=== PATIENT | female | born 1995 | race Caucasian/White ===

== ENCOUNTER 2024-02-14 08:00 | Outpatient (RCR) | payer MEDICAID, SELFPAY ==
--- NOTE | 2024-02-14 09:05 | BH.SGPN.GN ---
Behaviors/Verbalizations/Mental Status: [] Eye contact is good. Motor activity is appropriate. Appearance is casual. Speech is Appropriate. Mood is anxious. Affect is congruent. Thoughts are linear and logical. No evidence of psychosis. Reviewed daily check in sheet and no reports of suicidal ideations or intent. Client Response/Progress/Benefit: [] Pt participated when prompted. Attentive. Daily symptom tracker notes 3/5 for irritability and 2/5 for depression/anxiety. This was pt?s first group in [facility]. She declined to shared much about herself or what led her to enter [facility]. She discussed some of her interests and answered group question regarding identifying mental health wins in the past day. No progress noted as this was pt?s first day in IOP. Group provided feedback and advice for her first day in [facility] which was beneficial. Will continue in IOP to prevent decompensation, increase healthy coping, and improve functioning. Narrative Note: []
--- NOTE | 2024-02-14 10:20 | BH.SGPN.GN ---
Behaviors/Verbalizations/Mental Status: []Pt alert and oriented, causally dressed and groomed. Eye contact fair. Motor activity appropriate. Speech within normal limits. Affect constricted, mood anxious and depressed. Thoughts linear, logical, no signs of hallucinations or delusions. Client Response/Progress/Benefit: [] Pt responded well to session, contributing to discussion, and engaged during the activity. Group identified the benefits of change which included: increased confidence, improving mental health, and making progress. Worked with the group to identify barriers to change, which included: uncomfortable emotions such as anxiety and fear, lack of energy, worried about what others will think, and fear of the unknown. Pt participated along with group in activity where they identified and discussed the emotions related to change. Pt connected with peers that one can have many conflicting emotions when faced with change. Benefited from increased awareness and understanding of emotions, benefits, and barriers related to change. Will continue IOP tx to improve healthy coping, challenge anxious thoughts/decrease avoidance, and prevent decompensation.
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
--- NOTE | 2024-02-14 10:49 | BH.COMM ---
Communication Note Communication with Client Communication Note: Met with pt to complete initial paperwork and administer the CSSR-S screening and risk assessment. Pt is low risk as pt has history of suicidal ideations with thoughts of methods and she had one self-aborted attempt when she was younger, but pt denies any thoughts of or SI within the past month. Pt denies any suicide attempts in her lifetime. No report of self-harm. Pt has no access to weapons. Pt a Discussed case with Dr. Melendez and pt will be admitted to [facility] tx with a diagnosis of Bipolar I, most recent episode depressed F 31.81
--- NOTE | 2024-02-14 11:15 | BH.SGPN.GN ---
Behaviors/Verbalizations/Mental Status: [] Client alert and oriented, casually dressed and groomed. Eye contact good. Motor activity appropriate. Speech within normal limits. Affect congruent, mood anxious. Thoughts linear, logical, no signs of hallucinations or delusions. Client Response/Progress/Benefit: [] Client responded well to session, attentive throughout. Did well to actively listen and contributed when prompted as group worked to process activity. Pt worked with group to relate the strategies used to overcome barriers in the activity to managing change in own life. Client identified a change they would like to make is improving self-confidence. Client identified currently being in preparation stage for this particular change. Client said reaching out to new people and maintaining her current boundaries can help get her to next stage. Appeared to benefit from identifying a change they want and how to progress. Client will continue IOP tx to prevent decompensation, gain healthy coping skills, and improve daily functioning. Narrative Note: []
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
[2024-02-15 09:32] VITALS: BP 145/98; PULSE 74
--- NOTE | 2024-02-15 10:00 | BH.SGPN.GN ---
Behaviors/Verbalizations/Mental Status: [] Eye contact is good. Motor activity is appropriate. Appearance is casual. Speech is Appropriate. Mood is depressed. Affect is congruent. Thoughts are linear and logical. No evidence of psychosis. Client Response/Progress/Benefit: [] Pt participated at times. Attentive. Participated in and was engaged during experiential activity. Able to relate experiential activity to group topic of FOF. Attentive during interactive discussion on what failure means to the group in which peers identified and defined failure and Fear of Failure. Attentive as group was able to identify impact of fear of failure on mental health identifying that it can lead to; giving up, isolation, complacency, self-sabotage, being hesitant to ask for help, and the self-fulfilling prophecy. Attentive during interactive discussion on the impact that FOF can have on mental wellness, depression, anxiety, career, relationships, and growth. Benefited from increased awareness of how the role that FOF plays in mental health and decision-making. Will continue in IOP to prevent decompensation, increase healthy coping, and improve functioning. Narrative Note: []
--- NOTE | 2024-02-15 11:05 | BH.SGPN.GN ---
Behaviors/Verbalizations/Mental Status: []Pt alert and oriented, neatly dressed and groomed. Eye contact good. Motor activity appropriate. Speech within normal limits. Affect congruent, mood anxious. Thoughts linear, logical, no signs of hallucinations or delusions. Client Response/Progress/Benefit: []Pt responded well to session, engaged in the experiential activity and attentive throughout group processing. Pt reported fear of failure has kept pt from going after jobs she wants. Pt completed fear of failure worksheet and was able to identify thoughts and behaviors that reinforce personal fear of failure including not being good enough, miscommunications, and unrealistic expectations. ?Pt participated in group discussion regarding strategies to overcome fear of failure. Identified wanting to work on not letting others? opinions define her future. Appeared to benefit from increased knowledge of strategies to combat fear of failure and gaining self-awareness. Pt will continue IOP tx to prevent decompensation, improve daily functioning, and gain healthy coping skills. ? Narrative Note: []
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
--- NOTE | 2024-02-15 12:12 | BH.DR.ITP ---
Initial Treatment Plan Patient Information Visit Information: ADMISSION DATE: EXPECTED LOS: 4-6 weeks Problems/Symptoms Problem #1:: Depression Symptom:: Sadness, hopelessness, worthlessness, guilt, decreased concentration, recent passive thoughts of , recent self-harm Problem #2:: Anxiety Symptom:: Worry, rumination, panic attacks, nightmares, flashbacks, avoidance, hypervigilance
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
--- NOTE | 2024-02-16 10:10 | BH.SGPN.GN ---
Behaviors/Verbalizations/Mental Status: [] Eye contact is good. Motor activity is appropriate. Appearance is casual. Speech is Appropriate. Mood is anxious. Affect is congruent. Thoughts are linear and logical. No evidence of psychosis. Client Response/Progress/Benefit: [] Pt receptive of session, actively engaged throughout AEB taking notes, providing input, and contributing in small group discussion. Appeared to connect with group topic of automatic thoughts and cognitive distortions, as well as the impact of thought patterns on mental health, coping behaviors, and relationships. This particular group is very heavy on psychoeducation and pt appeared to connect with distortions and how they can impact functioning. Identified struggling with all or nothing thinking and disqualifying the positives distortions. Pt appeared to benefit from gaining insight on distorted thinking patterns and how this impacts overall mental health. Will continue IOP to stabilize mood, improve ability to function, and prevent decompensation. Narrative Note: []
--- NOTE | 2024-02-16 11:20 | BH.SGPN.GN ---
Behaviors/Verbalizations/Mental Status: []Pt alert and oriented, casually dressed and groomed. Eye contact fair. Motor activity appropriate. Speech within normal limits. Affect congruent, mood anxious. Thoughts linear, logical, no signs of hallucinations or delusions. Client Response/Progress/Benefit: [] Pt was an active participant during group discussion. Pt was placed in a smaller group and participated in combatting example distortions with peers. Pt was engaged in the smaller group, participated in group interactions to brainstorm answers, and appeared to be comprehending cognitive distortions. Pt could connect with mind reading and catastrophizing cognitive distortions to negatively impact her. Benefited from gaining further insight and awareness of cognitive distortions as well as practicing ways to reframe and challenge thoughts. Will continue in IOP tx to increase consistent use of healthy coping skills, challenge negative thoughts, and prevent decompensation.
--- NOTE | 2024-02-21 09:05 | BH.SGPN.GN ---
Behaviors/Verbalizations/Mental Status: [] Eye contact is good. Motor activity is appropriate. Appearance is casual Speech is Appropriate. Mood is depressed. Affect is congruent. Thoughts are linear and logical. No evidence of psychosis. Reviewed daily check in sheet and no reports of suicidal ideations or intent. Client Response/Progress/Benefit: [] Pt participated at times during group discussion on Cognitive Behavioral Therapy and combating negative thoughts. Pt shared that she is working with local agency to improve her interviewing skills to hopefully get a job. She beleives that she is doign well which has helped with her self-esteem, mood, and overall outlook on the future. Has an upcoming interview. Recent negative experience after a date which has resulted in negative thinking, however overall believes that she is managing her thoughts, stressors, and emotions better. Progress noted. Benefited from group support, encouagment, and feedback. Will continue in IOP to maintain safety, prevent decompensation, increase healthy coping, and improve functioning. Narrative Note: []
--- NOTE | 2024-02-21 10:05 | BH.SGPN.GN ---
Behaviors/Verbalizations/Mental Status: []Patient was alert and oriented, neat dressed and groomed. Eye contact was fair, motor activity normal, speech within normal limits. Affect constricted, mood calm. Thoughts linear, logical, no signs of hallucinations or delusion Client Response/Progress/Benefit: []Pt participated in the group discussions AEB providing input and taking notes. Attentive during psychoeducation Goal Setting. Participated during the discussion on common barriers and pt identified some personal barriers as guilt, feeling selfish, and goals taking a long time. Group also identified benefits sense of purpose, improved self-confidence, more motivation for other goals, and improved mental health. Benefited from increased awareness of mental health benefits of goals as well as psychoeducation on SMART goal criteria. Will continue in IOP to improve mood stability, reduce negative thinking patterns, and improve distress tolerance skills. ? Narrative Note: []
--- NOTE | 2024-02-21 14:01 | BH.MDN_ITS ---
Multi-Disciplinary Note Note 60-min Individual: Time Started:: 11:10 Date: 02/21/24 Purpose of session/treatment goals addressed:: To work on goal #1 of pt's tx plan. Eye Contact:: Good Motor Activity:: Appropriate Appearance:: Casual Speech:: Appropriate Mood:: Euthymic and Anxious Affect:: Full Thoughts:: Linear, Logical and No evidence of hallucinations/delusions noted Staff Interventions:: thought challenging, CBT techniques, mindfulness skills, rapport building, strengths perspective and other (gave homework on C- PTSD ) Client Response:: Pt responded well to session, open to meeting with therapist. Pt shared she had a bad experience recently with a torito she was talking to and trying to date. Pt shared she thought things were going well, but then he ghosted her. Pt stated she began to have some negative thoughts about herself, but she has been able to challenge these. Pt reported she has spent a lot of years trying to build up her self-esteem, but there are times when she falls into old thinking patterns. Pt stated dating is something that is challenging for her because pt has been hurt and disappointed in the past. Pt also has been in several relationships that were friends with benefits and that can make things difficult as well. Pt shared one of her good friends who pt also had a sexual relationship with on and off again for many years by suicide. Pt still has a lot of guilt over this as pt feels she could have done more to stop him for killing himself. Pt receptive to thought challenging and recognizes that this is inappropriate guilt, but she still feels partially responsible. Talked about ways pt can protect her mental health and self-esteem while dating including being forthcoming about her expectations and sticking to her own boundaries. This led to a discussion about C-PTSD and how different k inds of trauma can impact a person's boundaries within relationships. Pt receptive to learning more about this for homework and we will go over it next session. Risks/Concerns:: Pt denies any active SI, plan, or intent. Progress Toward Goals/Plan:: Pt's second week of IOP tx and pt reported the first week went well. Pt reports she felt a little drained after her first week, but not too much. Pt receptive to homework about C-PTSD and practicing grounding skills. Pt also wants to work on her communication and boundaries with her mother while in IOP. Pt will continue IOP tx to prevent decompensation, improve mood stability, and increase distress tolerance skills. Time Stopped:: 12:05
--- NOTE | 2024-02-22 09:00 | BH.SGPN.GN ---
Behaviors/Verbalizations/Mental Status: [] Pt alert and oriented, neatly dressed and groomed. Eye contact good. Motor activity appropriate. Speech within normal limits. Affect congruent, mood anxious. Thoughts linear, logical, no signs of hallucinations or delusions. Reviewed pt?s symptom tracker, no risk for suicidal ideation, plan, or intent 02/22/24 Client Response/Progress/Benefit: []Pt responded well to session, attentive and engaged. Pt reports feeling anxious this morning due to having a neurologist referral given to her recently. Pt stated having a bunch of doctor's appointments is both a win and a stressor for pt as pt is busy, but she is also doing a lot of not so fun self-care. Pt's other mental health win today is she came out of a depressive episode using healthy coping skills which pt was proud of herself for. Pt appeared to benefit from reflecting on progress and connecting with peers. Pt will continue IOP tx to promote mood stability, reduce negative thinking patterns, and improve daily functioning. Narrative Note: []
--- NOTE | 2024-02-22 10:10 | BH.SGPN.GN ---
Behaviors/Verbalizations/Mental Status: []Pt alert and oriented, casually dressed and groomed. Eye contact good. Motor activity appropriate. Speech within normal limits. Affect congruent, mood anxious and depressed. Thoughts linear, logical, no signs of hallucinations or delusions. Client Response/Progress/Benefit: [] Pt participated mainly during small group discussions. Attentive during psychoeducation about defense mechanisms. Showed engagement during small group discussions and helped group identify which defense mechanisms were maladaptive, adaptive, or ?somewhere in the booker.? Pt worked with small group on identifying how each defense mechanism can impact mental health and gave examples. ?Seemed to benefit from gaining awareness about the different defense mechanisms. Pt to continue IOP tx to prevent decompensation, maintain safety, increase healthy coping, and improve functioning. Narrative Note: []
--- NOTE | 2024-02-22 11:15 | BH.SGPN.GN ---
Behaviors/Verbalizations/Mental Status: []Pt alert and oriented, casually dressed and groomed. Eye contact good. Motor activity appropriate. Speech within normal limits. Affect congruent, mood depressed and anxious. Thoughts linear, logical, no signs of hallucinations or delusions. Client Response/Progress/Benefit: [] Pt responded well to session, participating in activity and small group discussion. Group reviewed the rest of the defense mechanisms and discussed how these are adaptive, maladaptive, or somewhere in the booker. Pt participated in the experiential activity which encouraged pts to draw a castle that portrayed their different defense mechanisms. Pt's defense mechanisms included suppression, and displacement. Pt shared she is working on managing suppression by trying to build on self-compassion and self-care practices. Pt listened to landcare facilitator teach different skills to help pt?s cope with or change their defense mechanisms. Pt appeared to benefit from gaining insight to the different defense mechanisms and learning coping skills. Pt will continue IOP tx to promote mood stability, combat distortions, and prevent decompensation. Narrative Note: [] Narrative Note: []
--- NOTE | 2024-02-28 09:00 | BH.SGPN.GN ---
Behaviors/Verbalizations/Mental Status: [] Eye contact is good. Motor activity is appropriate. Appearance is casual. Speech is Appropriate. Mood is anxious. Affect is congruent. Thoughts are linear and logical. No evidence of psychosis. Reviewed daily check in sheet and no reports of suicidal ideations or intent. Client Response/Progress/Benefit: [] Pt participated when prompted. Attentive. Daily symptom tracker notes 2/5 for depression and self-harm urges. Pt states that she has been manic noting decreased sleep (two hours in the past two days). According to pt her manic episodes typically last a couple days to a week. Also reports increased energy and desire to active and spend implusivly. Taking proactive steps as she has informed her support of her kvng, given her credit cards to her mother, and has been taking her medications. Primary stressor related to health concerns. Currently her PCP is running numerous tests to rule out a number of disorders. Benefited from group support, encouragement, and feedback.Will continue in IOP to maintain safety, prevent decompensation, stabilize mood, and improve functioning. Narrative Note: []
--- NOTE | 2024-02-28 10:10 | BH.SGPN.GN ---
Behaviors/Verbalizations/Mental Status: [] Eye contact is good. Motor activity is appropriate. Appearance is casual. Speech is Appropriate. Mood is depressed/anxious. Affect is congruent. Thoughts are linear and logical. No evidence of psychosis. Client Response/Progress/Benefit: [] Pt did well to participate in activity and was engaged and attentive during psychoeducation and interactive discussion on coping skills, why people use unhealthy coping skills, how to replace unhealthy coping skills, and internal vs external coping skills. Increased participation than in prior groups which is progress. Attentive as peers came up with list of negative coping skills including not asking for help, avoidance, isolating, sleeping, shopping, substance use, and several others. Pt reports often turning to comfort snacking and smoking which helps short-term but results in increased guilt and health issues long-term. Group discussed the effects of how negative coping skills can impact mental health in a negative way. Benefited from increased understanding of unhealthy coping skills and the need for developing healthy internal and external coping skills. Will continue in IOP to prevent decompensation, increase healthy coping skills, and improve functioning. Narrative Note: []
--- NOTE | 2024-02-28 11:10 | BH.SGPN.GN ---
Behaviors/Verbalizations/Mental Status: []Pt alert and oriented, neatly dressed and groomed. Eye contact good. Motor activity appropriate. Speech within normal limits. Affect congruent, mood anxious. Thoughts linear, logical, no signs of hallucinations or delusions. Client Response/Progress/Benefit: [] Pt responded well to session, taking notes and contributing when prompted. Group discussed the different categories of coping skills which included distraction, emotional release, grounding, self-love, and thought challenging. Pt participated in creating a coping skills ?menu? from the five categories of coping skills. Pt's coping skill menu included: music, nature walks, exercise, venting to support, being barefoot outside, calling out her negative self-talk, and writing down accomplishments. Appeared to benefit from increasing repertoire of healthy coping skills. Will continue IOP to improve consistent skill application, challenge distortions, and improve self-compassion. Narrative Note: []
--- NOTE | 2024-02-29 09:05 | BH.SGPN.GN ---
Behaviors/Verbalizations/Mental Status: [] Eye contact is good. Motor activity is appropriate. Appearance is casual. Speech is Appropriate. Mood is anxious. Affect is congruent. Thoughts are linear and logical. No evidence of psychosis. Reviewed daily check in sheet and no reports of suicidal ideations or intent. Client Response/Progress/Benefit: [] Pt participated at times during the group discussions. She has reported being ?manic? the past few days however believes her mood is stabilizing due to increase sleep. Remains anxious and restless. Worried about healthy concerns however is following through with testing. Also focused on obtaining employment as she is working with local agency to improve her interviewing skills. Progress noted. Benefited from group support, encouragement, and feedback. Will continue in IOP to prevent decompensation, stabilize mood, and improve functioning. Narrative Note: []
--- NOTE | 2024-02-29 11:46 | PCM.BH.PN ---
Progress Note Progress Note: History of Present Illness/Interim History: The patient is a 28-year-old single, female with a history of bipolar disorder, PTSD, anxiety, ADHD and binge eating disorder who is seen in follow-up at the [facility] behavioral health [facility]. I last saw the patient 2 weeks ago for her initial evaluation and at that time no medication changes were made. Since that time the patient states she is doing okay overall but does admit that she was hypomanic for 2 days or so several days ago and this symptoms just recently resolved. She states that she was thinking fast and spending more money and also slept less than 1 hour night for 2 days straight. She gave her mom her credit card so she would stop spending money. Patient feels she is learning valuable skills in the IOP and feels that overall she is less depressed than before now that her hypomania has resolved. She still endorses sadness and occasional hopelessness. She still feels guilt but it is less than before. She denies any history of self-harm. She has had occasional passive thoughts of in recent days but denies suicidal ideation, plan for suicide, homicidal ideation, hallucinations or delusions. No binging due to taking Vyvanse. Current Psychiatric Medications: [] Vraylar 4.5 mg p.o. daily (dose was decreased 7 weeks ago from 6 mg because the patient says that she feels a little anxious on the 6 mg dose if she is not manic at the time); Vyvanse 40 mg every morning; propranolol 20 mg twice daily; hydroxyzine 25 mg 1-2 daily as needed for panic attacks Mental Status Examination: [] The patient is a 28-year-old obese female who has a nose piercing and a large amount of tattoos bilaterally on her arms, neck and chest. She is casually dressed and groomed with good hygiene and is appears normal for stated age otherwise. She has no psychomotor agitation or retardation and is ambulatory with a normal gait. She is cooperative during the interview. Eye contact is good and speech is normal rate and rhythm and fluent with no pressure. Mood is depressed. Affect is full and normal. Thought process is goal-directed and organized. Thought content: There is evidence of occasional passive thoughts of but there is no evidence of suicidal ideation, plan for suicide, homicidal ideation, hallucinations, delusions or current symptoms of hypomania or kvng. Reality testing is intact. Judgment is intact. Insight: Limited but improving. Impulsivity: High. Diagnoses: [] 1. Bipolar 1 disorder, most recent episode mixed, severe without psychosis (F31.63) 2. PTSD 3. Panic disorder 4. Binge eating disorder 5. Strong cluster B traits 6. Primary support and work issues Plan: [] The patient will continue the IOP in behavioral health at [facility] as the structure, support, education and group therapy will hopefully prevent worsening of the patient's symptoms which could require hospitalization. She felt safe during the interview and if it anytime she does not feel safe she agrees to let us know or go to the emergency room. The risks, options, possible side effects and complications of the medications were again discussed with the patient and she understands and accepts these. Strong recommendation was made to increase the Vraylar back up to 6 mg p.o. daily to reduce the possible rapid cycling and also to treat the what I believe may be a mixed episode of depression and occasional hypomania symptoms. Discussed with the patient that spending the money and having her mood change is decreasing her quality of life overall. She agrees to increase the Vraylar back up to 6 mg daily and a prescription is sent in for this. She will continue to follow-up with her outpatient providers and I will see the patient in follow-up in 2 weeks.
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
--- NOTE | 2024-03-01 09:07 | BH.SGPN.GN ---
Behaviors/Verbalizations/Mental Status: [] Eye contact fair to good. Motor activity appropriate. Speech within normal limits. Affect congruent, mood anxious and euthymic. Thoughts linear, logical, no signs of hallucinations or delusions. Reviewed client?s symptom tracker, denies SI, plan, or intent as of 03/01/2024. Client Response/Progress/Benefit: [] Client receptive of session, attentive and willing to process with group. Reports improved sx of depression?(1/5) and ongoing anxiety (2/5) per daily sx tracker. ?Identified mental health ?mary ellen as successfully meeting with [employer] to begin the process of finding supportive employment. Additional win noted as making plans with several friends to go out to dinner for her birthday this weekend. Shared that she did well to create a plan with realistic expectations compared with trying to plan something extravagant as she has in the past. Current stressor identified as wanting a specific friend to attend but this friend has been struggling with canceling plans recently. Shared trying to prepare herself for the possibility they cancel, as well as use empathy. Benefitted from encouragement and support of the group. Recommended continued IOP tx to further improve mood stability, promote consistent skill application, improve confidence, as well as prevent decompensation. Narrative Note: []
--- NOTE | 2024-03-01 10:10 | BH.SGPN.GN ---
Behaviors/Verbalizations/Mental Status: [] Eye contact is good. Motor activity is appropriate. Appearance is casual. Speech is Appropriate. Mood is anxious and depressed. Affect is congruent. Thoughts are linear and logical. No evidence of psychosis Client Response/Progress/Benefit: [] Pt an active participant in group discussions. Participated during interactive discussion on defining conflict (internal/external) and possible benefits to conflict. Attentive during psychoeducation on conflict styles (Avoidant, Accommodating, Competing, Cooperative) and engaged during interactive discussion in which peers identified the benefits and consequences to each conflict style. Pt identified their primary conflict style as collaborating stating I like to work through conflicts and gain perspectives on other views Benefited from increased awareness of the impact of conflict styles in mental health. Will continue in IOP tx to prevent decompensation, stabilize mood, and increase healthy coping skills. Narrative Note: []
--- NOTE | 2024-03-01 11:10 | BH.SGPN.GN ---
Behaviors/Verbalizations/Mental Status: []Eye contact is good. Motor activity is appropriate. Appearance is neat. Speech is Appropriate. Mood is anxious, content. Affect is congruent. Thoughts are linear and logical. No evidence of psychosis. Client Response/Progress/Benefit: [] Pt was an active participant in group discussions and activity. Engaged with peers in activity and identifying healthy ways to approach each conflict scenario. Group discussed various conflict resolution skills that can be useful in addressing conflict outside of IOP. Benefited from practicing and learning conflict resolution skills during group activity. Able to identify areas pt wants to work on to improve how pt manages conflict both internally and externally. Expressed wanting to work on their stonewalling when they feel overwhelmed by taking a break and ?gathering my thoughts through writing.? Will continue in IOP to stabilize mood, improve self-confidence, and combat distortions. Narrative Note: []
--- NOTE | 2024-03-07 09:00 | BH.SGPN.GN ---
Behaviors/Verbalizations/Mental Status: [] Eye contact good. Motor activity appropriate. Speech within normal limits. Affect congruent, mood content. Thoughts linear, logical, no signs of hallucinations or delusions. Reviewed client?s symptom tracker, denies SI, plan, or intent as of 03/07/2024. Client Response/Progress/Benefit: [] Client receptive of session, attentive and willing to process with group. Reports ongoing sx of anxiety ?(2/5) and improved depression (1/5) per daily sx tracker. ?Identified mental health ?win as successfully scheduling several medical appointments and making her physical health a priority. Additional win noted as getting an interview for later today. Shared she is anxious but excited about it and reports that she feels this position will be a good match for her. Identified skills she can use to manage anxiety and prepare for it. Stressor noted as finances but reminded herself this will improve upon employment. Benefitted from encouragement and support of the group. Recommended continued IOP tx to further maintain mood stability, promote consistent skill application, well as prevent decompensation. Narrative Note: []
--- NOTE | 2024-03-07 10:10 | BH.SGPN.GN ---
Behaviors/Verbalizations/Mental Status: []Eye contact is good. Motor activity is appropriate. Appearance is causal. Speech is Appropriate. Mood is anxious. Affect is congruent. Thoughts are linear and logical. No evidence of psychosis Client Response/Progress/Benefit: [] Pt was an active participant in group discussion and experiential activity. Attentive during psychoeducation on resilience. Participated during interactive discussion with peers on the definition of resilience. Able to relate experiential activity of group juggle to topics of resilience. Group worked together to identify what can impact one's ability to be resilient which included past experiences, trauma, toxic support system, lack of resources, and current mental/physical health state. Worked well with peers in small group in which they identified factors that contribute to building resilience. Pt?s group worked on the importance of social connections. Benefited from increased awareness of resilience and the factors that contribute to building resilience. Will continue in IOP to increase confidence, challenge negative/distorted thoughts, and prevent decompensation.
--- NOTE | 2024-03-07 11:10 | BH.SGPN.GN ---
Behaviors/Verbalizations/Mental Status: []Pt alert and oriented, casually dressed and groomed. Eye contact good. Motor activity appropriate. Speech within normal limits. Affect congruent, mood content. Thoughts linear, logical, no signs of hallucinations or delusions. Client Response/Progress/Benefit: []Pt responded well to session AEB completing the resilience worksheet provided. Pt participated in the discussion and worked cooperatively with group to identify strategies to enhance each of the components discussed. Pt reports belief they already use resilience traits of??making connections and maintaining a hopeful outlook.? Pt stated they would like to continue to develop resilience trait of ?nurturing a positive view of self? as pt feels pt would benefit from looking at past evidence when she did well and sitting with the uncomfortable. Pt seemed to benefit from discussing strategies for improving personal resilience and identifying resilience traits pt already possesses. Will continue IOP tx to prevent decompensation, gain self-confidence, and improve daily functioning. Narrative Note: []
--- NOTE | 2024-03-07 14:59 | BH.MTP_ITS ---
Treatment Plan Review Demographics Date of Admission:: 02/14/24 Date of Treatment Plan Review:: 03/07/24 Admitting Diagnoses:: Bipolar 1 disorder, most recent episode depression, severe without psychosis; PTSD; Panic disorder; Binge eating disorder; Strong cluster B traits Current Diagnoses:: Bipolar 1 disorder, most recent episode depression, severe without psychosis; PTSD; Panic disorder; Binge eating disorder; Strong cluster B traits Patient Status Patient's Response to Treatment:: Pt has responded well to session AEB engaging in both individual and group therapy sessions. Pt contributes at times during group discussions, takes notes, appears to listen to others, and engages in group activities. Pt's attendance is mostly consistent, but pt does consistently miss one day per week. Pt's overall DSM-5 scores have increased since admission, but anxiety has decreased by 29%, anger has decreased by 75%, and overall scores have decreased by 52%. Status of Current Problems and Symptoms: Pt's symptoms are ongoing, but improving in some areas. Pt's depression has not decreased since admission and pt currently reports feeling stressed about her home situation. Pt and her mother have been having tension lately. Pt has been reporting issues with sleep at least once a week, low energy, and difficulty following through with her goals. Pt continues to have primary support and work issues. Progress Problem #1: Problem Name:: Depression, hopelessness, worthlessness, and negative thinking Status of Goals:: Objective 1- not complete. Pt?s scores for depression remain the same since admission, but pt continues to work on applying coping skills. Pt reports more stressors at home that are contributing to her depressed mood. Objective 2- in progress. Pt is working on incorporating more self- compassion and catching negative self-talk. Team Recommendations:: Team recommends continued goals and objectives to reinforce skills and reduce symptoms. Team recommends pt continue working on combating distortions, being more self-compassionate, and setting boundaries with her mother. Problem #2: Problem Name:: Anxiety, panic attacks, and irritability. Status of Goals:: Objective 1- in progress. Pt is working on increasing her emotional regulation skills by using mindfulness skills, communicating with her mom, and practicing opposite action. Objective 2- in progress. Pt?s scores for anxiety have decreased by 29% since admission. Pt reports utilizing grounding skills and avoiding less things that make pt anxious. Team Recommendations:: Treatment team encourages pt to continue working on emotional regulation skills and practicing self-care to reduce stress. Pt also encouraged to set boundaries with others and herself.
--- NOTE | 2024-03-13 12:04 | BH.MDN ---
Multi-Disciplinary Note Note 45-min Individual: Time Started:: 11:10 Date: 03/13/24 Time Stopped:: 12:00
== END 2024-03-07 23:59 ==
LOC: BHIOP 08:00
PROVIDERS: PCP Student in an Organized Health Care Education/Training Program; Referring Provider Psychiatry & Neurology Psychiatry; Visit Provider Psychiatry & Neurology Psychiatry
DX: F31.4 Bipolar disorder, current episode depressed, severe, without psychotic features (principal); F43.10 Post-traumatic stress disorder, unspecified; F41.0 Panic disorder [episodic paroxysmal anxiety]; F50.81 Binge eating disorder; Z79.899 Other long term (current) drug therapy
CPT/HCPCS: 90792; 99213; H2012; H2020; S9480; T1002; 90832; 90834; 90837

== ENCOUNTER 2024-03-08 07:15 | Outpatient (RCR) | payer MEDICAID, SELFPAY ==
[2024-03-08 00:52] VITALS: BP 145/98; PULSE 74
--- NOTE | 2024-03-08 09:02 | BH.SGPN.GN ---
Behaviors/Verbalizations/Mental Status: [] Client alert and oriented, casual appearance. Eye contact good. Motor activity appropriate. Speech within normal limits. Affect congruent, mood euthymic. Thoughts linear, logical, no signs of hallucinations or delusions. Reviewed client's symptom tracker, no risk for suicidal ideation, plan, or intent. Client Response/Progress/Benefit: [] Client responded well to session AEB listening to others and sharing thoughts/feelings. Client stated mental positive as having an interview that went overall good. Client stated she is looking forward to possibly getting this job which she thinks will be really good for her. Client noted additional mental positive as going out to dinner with her grandparents. Client stated current stressor is health issues with an upcoming neurologist appointment. Client stated she has a hard time not feeling nervous about this appointment recognizes that Teodora Zarate cannot do anything about it until then. Appeared to benefit from support from peers. Will continue IOP tx to promote use of healthy coping skills, challenge distortions, and prevent decompensation. Narrative Note: []
--- NOTE | 2024-03-08 10:10 | BH.SGPN.GN ---
Behaviors/Verbalizations/Mental Status: [] Eye contact is good. Motor activity is appropriate. Appearance is casual. Speech is Appropriate. Mood is anxious. Affect is congruent. Thoughts are linear and logical. No evidence of psychosis. Client Response/Progress/Benefit: [] Pt was an engaged participant AEB listening attentively to others, taking notes, and providing feedback in small group discussions. Attentive during psychoeducation AEB by note taking and providing some input. Pt worked along with peers in small groups to define inappropriate guilt and appropriate guilt. Interactive discussion on examples of both inappropriate and appropriate guilt. Pt able to connect impact inappropriate guilt can have on MH. Benefited from increased awareness of guilt and the differences between appropriate and inappropriate guilt. Plan is to continue in IOP to prevent decompensation, stabilize mood, increase healthy coping, and improve functioning. Narrative Note: []
--- NOTE | 2024-03-08 14:37 | BH.MDN_ITS ---
Multi-Disciplinary Note Note 45-min Individual: Time Started:: 11:15 Date: 03/08/24 Purpose of session/treatment goals addressed:: To work on goal #2 of pt's tx plan. Eye Contact:: Good Motor Activity:: Appropriate Appearance:: Casual Speech:: Appropriate Mood:: Euthymic and Anxious Affect:: Congruent Thoughts:: Linear, Logical and No evidence of hallucinations/delusions noted Staff Interventions:: thought challenging, CBT techniques, strengths perspective, goal setting and other (resources ) Client Response:: Pt responded well to session, open to meeting with therapist. Pt reports feeling more anxious lately and stated she would like to explore medication options for her anxiety. Pt feels that not having a job, financial stress, and not having a lot of personal time is also contributing to her increased anxiety. Pt was receptive to getting information about resources in [facility]Note 3] as well as the [employer] [facility]. Pt stated she and her mother have been getting on each other's nerves lately and pt is unsure how to work on this. Pt receptive to brainstorming ways to get personal space and having less tension at home. Pt decided she wants to try getting out of the house more and doing something physical like swimming at the [facility] or exercising with a friend. Pt plans to go to the [facility] tomorrow. Pt also receptive to talking with her mother about boundaries and expectations by having daily check-ins with each other. Pt also encouraged to practice calming skills to manage stress in the moment. Risks/Concerns:: Pt denies any suicidal ideations, plan, or intent as of 03/08/24. Progress Toward Goals/Plan:: Pt continues to make progress on her tx goals AEB pt's report of utilizing healthy coping skills outside of IOP and seeking job opportunities. Pt reports her anxiety is getting worse recently and pt is unsure why. Pt would like to explore medication for her anxiety and pt will see Dr. Melendez next week. Pt will continue IOP tx to reduce intensity of anxiety, improve daily functioning, and increase distress tolerance skills. Time Stopped:: 12:00
--- NOTE | 2024-03-13 09:00 | BH.SGPN.GN ---
Behaviors/Verbalizations/Mental Status: [] Eye contact good. Motor activity appropriate. Speech within normal limits. Affect congruent, mood content, euthymic. Thoughts linear, logical, no signs of hallucinations or delusions. Reviewed client?s symptom tracker, denies SI, plan, or intent as of 03/13/2024. Client Response/Progress/Benefit: [] Client receptive of session, attentive and willing to process with group. Reports improved sx of depression?(2/5) but ongoing anxiety (3/5) per daily sx tracker. ?Identified mental health ?win as learning this morning she had been offered a job. Reports feeling excited about this as she will be working with a friend of hers. Went on to discuss that finances had previously been a stressor but she feels a lot more relieved given the change in her employment stressor. Additional win noted as using opposite action so she did not fall into the nap trap and instead spent time engaging in self-care. Pt went on to describe her current stressor as an upcoming neurology appointment, but did well to identify grounding skills she can use to manage her anxiety, focus on what is in her control, as well as bring her aunt along as a support. Benefitted from encouragement and support of the group. Recommended continued IOP tx to further maintain mood stability, promote consistent skill application, well as prevent decompensation. Narrative Note: []
--- NOTE | 2024-03-13 10:10 | BH.SGPN.GN ---
Behaviors/Verbalizations/Mental Status: []Eye contact is good. Motor activity is appropriate. Appearance is neat. Speech is Appropriate. Mood is content. Affect is congruent. Thoughts are linear and logical. No evidence of psychosis. Client Response/Progress/Benefit: [] Attentive and engaged throughout the group discussions. Attentive during psychoeducation on the 4 communication styles (Passive, Passive-Aggressive, Aggressive, and Assertive) and the obstacles to effective communication. Attentive during interactive discussion on the benefits of communicating effectively, as well as the benefits and disadvantages to the different communication styles. Reports connecting most with the passive and passive aggressive communication styles, especially with her mother. Pt shared she often shuts down which leads to her needs not getting met. Benefited from increased understanding of communication styles and how these can impact effective communication. Will continue in IOP to promote mood stability reinforce healthy coping skills, and increase distress tolerance. Narrative Note: []
--- NOTE | 2024-03-13 14:25 | BH.MDN ---
Multi-Disciplinary Note Note 45-min Individual: Time Started:: 11:10 Date: 03/13/24 Purpose of session/treatment goals addressed:: To work on acceptance, review progress and discuss discharge, and process current stressors. Eye Contact:: Good Motor Activity:: Appropriate Appearance:: Neat Speech:: Appropriate Mood:: Euthymic and Other (motivated) Affect:: Full Thoughts:: Linear, Logical and No evidence of hallucinations/delusions noted Staff Interventions:: thought challenging, CBT techniques, mindfulness skills, discharge planning, strengths perspective, goal setting and taught coping skills (distress tolerance skills and self-compassion techniques.) Client Response:: Pt responded well to session, open to meeting with therapist. Pt shared the weekend went well, some stressors were resolved, including getting a job and her mom's financial stress reducing. Pt stated she and her mother are working on better communication and boundaries and pt shared this is going well. Pt reported her mother respected one of pt's boundaries, but overall it is challenging to be with mom so often. Pt stated this is because her mother is like a shell of a person and does not have many interests or hobbies. Pt is working on not taking on her mother's mental health and emotions. Pt reminded that she can be a good support and accept that she is not responsible for mother's mood. Pt shared some of her journal entries and processed some of these goals and thoughts. Pt stated one of the things she has been wanting to get back into is going to the gym. Pt had a goal last week to go to the [employer], but her membership became inactive. Pt stated she reached out with a friend and they are going to start going to the gym together. Pt feels working on her physical health will help her overall mental health because right now her physical health is keeping pt from some of her passions and leading to more stress through medical issues. Pt stated one of her passions is going to concerts and she wants to get back into going consistently. Pt set a goal to go to the gym tonight and processed how to be consistent with this goal. Pt feels having a friend go with her will hold her accountable. Pt also encouraged to work on mindfully feeling her emotions instead of over-identifying with them which exacerbates pt's feelings. Risks/Concerns:: Pt denies any suicidal ideations, plan, or intent. Pt reports she did not sleep last night very much, so she is worried she might be hypomanic. This has only happened for one night, so pt and IOP staff will continue to monitor. Progress Toward Goals/Plan:: Pt continues to make progress towards her tx goals AEB pt's self-report of improving functioning and willingness to get back into hobbies and a routine. Pt also got a job today and she is looking forward to this opportunity. Pt reports belief that she will be ready to discharge from IOP on 03/27/24 as pt will start working after that. Pt is consistent with medications and attentive in sessions. Pt will continue IOP tx to promote mood stability, increase distress tolerance skills, and further improve daily functioning. Time Stopped:: 12:00
--- NOTE | 2024-03-14 09:02 | BH.SGPN.GN ---
Behaviors/Verbalizations/Mental Status: [] Client alert and oriented, casual appearance. Eye contact good. Motor activity appropriate. Speech within normal limits. Affect congruent, mood euthymic. Thoughts linear, logical, no signs of hallucinations or delusions. Reviewed client's symptom tracker, no risk for suicidal ideation, plan, or intent. Client Response/Progress/Benefit: [] Client responded well to session AEB listening to others and sharing thoughts/feelings. Client reported mental health positive as going to the gym. Client reported wants to keep up with working out because makes her feel better. Client reported additional positive as doing his goal checklist daily. Reported no stressor this morning. Appeared to benefit from support from peers. Will continue IOP tx to increase healthy coping skills, build confidence, and prevent decompensation. Narrative Note: []
--- NOTE | 2024-03-14 11:10 | BH.SGPN.GN ---
Behaviors/Verbalizations/Mental Status: []Pt alert and oriented, casually dressed and groomed. Eye contact good. Motor activity appropriate. Speech within normal limits. Affect congruent, mood euthymic. Thoughts linear, logical, no signs of hallucinations or delusions. Client Response/Progress/Benefit: [] Pt was an active participant throughout AEB contributing to group discussion and taking notes. Pt provided input during small group discussion on strategies to combat each factor maintaining adverse nutritional cycles. Worked with group to identify ways to foster more mindful nutritional choices. Each group participant identified one small step they could take today to begin establishing mental wellness promoting nutritional choices. Pt shared plans to?begin getting back into exercising with her friend to reduce binge eating urges. Appeared to benefit from gaining insight into mental wellness centered nutrition and identifying personal steps pt can take to support own nutritional psychology. Recommended continued IOP tx to promote self-care, improve mood stability, and combat distortions. ? Narrative Note: []
--- NOTE | 2024-03-14 12:09 | PCM.BH.PN_ITS ---
Progress Note Progress Note: History of Present Illness/Interim History: The patient is a 29-year-old single, female with a history of bipolar disorder, PTSD, anxiety, ADHD and binge eating disorder who is seen in follow-up at the [facility] behavioral health IOP. I last saw the patient 2 weeks ago and her Vraylar dose was increased as she was having a mixed episode with symptoms of hypomania. The patient states that she is tolerating the medication change well and her symptoms of hypomania have resolved completely. She does have some anxiety still which occurs in the afternoon where she feels jittery and has some stomach upset. She states that if she skips her Vyvanse she does have less anxiety but then she feels really tired and tends to binge eat that day. She denies sadness or hypomania. She still has some guilt and occasional hopelessness. She denies any passive thoughts of , suicidal ideation, plan for suicide, homicidal ideation, hallucinations or delusions. She has not done any binge eating due to taking her Vyvanse. She denies any recent panic attacks. Current Psychiatric Medications: [] Vraylar 6 mg p.o. daily (increased 2 weeks ago); Vyvanse 40 mg every morning for binge eating disorder; propranolol 20 mg p.o. twice daily; hydroxyzine 25 mg 1-2 daily as needed for panic attacks. Mental Status Examination: [] The patient is a 29-year-old obese female who has a nose piercing and a large amount of tattoos bilaterally on her arms, neck and chest. She otherwise appears normal for stated age and is casually dressed and groomed with good hygiene. She is ambulatory with a normal gait and has no psychomotor agitation or retardation. She is cooperative during the interview with good eye contact. Speech is normal rate and rhythm and fluent with no pressure. Mood is mildly depressed only. Affect is full and normal. Thought process is goal directed and organized. Thought content: There is no evidence of passive thoughts of , suicidal ideation, plan for suicide, homicidal ideation, hallucinations, delusions or symptoms of hypomania or kvng. Reality testing is intact. Judgment is intact. Insight: Fair. Impulsivity: High. Diagnoses: [] 1. Bipolar 1 disorder, most recent episode mixed, severe without psychosis (F31.63) (resolving) 2. PTSD 3. Panic disorder 4. Binge eating disorder 5. Strong cluster B traits 6. Primary support and work issues Plan: [] The patient will continue the IOP and behavioral health at [facility] as the structure, support, education and group therapy will hopefully prevent worsening of the patient's symptoms. She felt safe during the interview and if it anytime she does not feel safe she agrees to let us know or go to the emergency room. The patient agrees to try BuSpar 10 mg p.o. twice daily to help with her anxiety that remains. Prescription is sent in for this. No other medication changes were made. The patient will continue to follow-up with her outpatient providers and I will see the patient in follow-up while she is in the IOP.
--- NOTE | 2024-03-19 09:05 | BH.SGPN.GN ---
Behaviors/Verbalizations/Mental Status: [] Client alert and oriented, casually dressed and groomed. Eye contact good. Motor activity appropriate. Speech within normal limits. Affect congruent, mood euthymic. Thoughts linear, logical, no signs of hallucinations or delusions. Reviewed client?s symptom tracker, no risk for suicidal ideation, plan, or intent as of 03/19/24. Client Response/Progress/Benefit: [] Client responded well to session, offering ideas to peers and providing encouragement. Client reports feeling content this morning even with having a stressful medical call earlier today. Client discussed the stress of appts coming up, but feels she is managing well even with the extra stress of dealing with appts and Drs. Client reported having a great weekend with a new love interest and is excited to start new job next week. Client appeared to benefit from reflecting on her growth. Client will continue IOP tx to maintain goals and prevent decompensation. Narrative Note: []
--- NOTE | 2024-03-19 10:10 | BH.SGPN.GN ---
Behaviors/Verbalizations/Mental Status: [] Pt alert and oriented, appropriate grooming/appearance. Eye contact good. Motor activity appropriate. Speech within normal limits. Affect congruent, mood content, anxious. Thoughts linear, logical, no signs of hallucinations or delusions. Client Response/Progress/Benefit: [] Pt was an active participant in group discussions. Attentive during psychoeducation. Contributed during interactive discussions in which peers attempted to define crisis. Group identified examples of potential crisis. Group also worked together to identify unhealthy responses to crisis which included lashing out, isolation, self-harm, substance abuse, and shutting down. Pt identified personal warning signs as isolation, loss of interest, and using substances by herself. Benefited from increased understanding of crisis and awareness of personal responses to crisis. Pt will continue IOP tx to increase consistency of healthy coping skills, promote mood stability, and prevent decompensation. Narrative Note: []
--- NOTE | 2024-03-19 11:10 | BH.SGPN.GN ---
Behaviors/Verbalizations/Mental Status: []Pt alert and oriented, appropriate grooming/appearance. Eye contact good. Motor activity appropriate. Speech within normal limits. Affect congruent, mood euthymic. Thoughts linear, logical, no signs of hallucinations or delusions. Client Response/Progress/Benefit: []Pt was an active participant in group discussions. Attentive during psychoeducation. In small group pt along with peers developed an active plan for their crisis warning signs. Pt identified three crisis warning signs as well as an action plan for each. One crisis warning sign was loss of interest in her hobbies. Pt identified coping skills to help with this such as: doing her makeup, listening to upbeat music, and taking baths with candles. Benefited from increased awareness of crisis warning signs and by developing crisis intervention strategies. Will continue in IOP to promote mood stability, increase self-compassion, and increase distress tolerance. Narrative Note: []
--- NOTE | 2024-03-27 14:52 | BH.DS ---
Discharge Summary Demographics Date of Admission:: 02/14/24 Discharge Date: 03/27/24 Presenting Problems at Admission:: Pt is a 28-year-old female with a history of bipolar I disorder, PTSD, DIPAK, PMDD, and binge eating disorder. Pt was referred to [facility] tx by her outpatient psych PA due to worsening depression, erratic moods, rapid cycling, and emotional dysregulation. Prior to [facility] admission, pt was noticing decompensation for at least four weeks and finding limited benefit from traditional outpatient counseling. Pt currently endorses a depressed mood, worthlessness, hopelessness, anhedonia, poor sleep, panic attacks, lack of concentration, and low motivation. Pt also reports passive thoughts of , guilt, and ruminations. Pt reports her symptoms are interfering with her daily functioning and her ability to maintain employment. Discharge Diagnoses:: Bipolar 1 disorder, most recent episode depression, severe without psychosis; PTSD; Panic disorder; Binge eating disorder; Strong cluster B traits Reason for Discharge:: Pt was scheduled to discharge from [facility] on 03/27/24 however, pt did not show for her last two days of therapy. The week prior pt called and canceled due to having COVID, however, pt did not call back to reschedule the missed appointments or answer [facility] voicemails. Pt was planning to start a new job on 03/28/24 so she could not continue with [facility] after 03/27/24. Treatment Progress During Treatment & Response: Pt responded mostly well to sessions AEB engaging in both individual and group therapy sessions. Pt was quiet during group, but she was very engaged during individual sessions. Pt's attendance was inconsistent. Pt averaged at least one cancel or no show per week and then did not show for her last two sessions. Pt did not complete the DSM-5 due to not attending on her last day, however, pt's overall DSM-5 scores had increased since admission according to her DSM-5 scores at review. In terms of progress, pt's anxiety decreased by 29% and anger decreased by 75% at review. Issues Still to be Addressed:: Pt can continue to benefit from outpatient counseling to further improve emotional regulation skills needed for maintaining employment and every day functioning. Pt can also benefit from increasing mood stability, combatting distortions, and maintaining healthy relationships. Discharge Recommendations/Instructions:: Pt sees Delmi Perea for individual counseling and Sharron Emmanuel for psychiatric medications. Pt sees Delmi weekly for individual counseling and has seen Sharron Emmanuel within the past month. Discharge Handout
--- NOTE | 2024-04-03 09:57 | BH.MDN ---
Multi-Disciplinary Note Note 60-min Individual: Time Started:: 11:10 Date: 02/21/24 Eye Contact:: Good Motor Activity:: Appropriate Appearance:: Casual Time Stopped:: 12:05
== END 2024-03-27 14:51 | disposition home or self-care (01) ==
LOC: BHIOP 07:15
PROVIDERS: PCP Student in an Organized Health Care Education/Training Program; Referring Provider Psychiatry & Neurology Psychiatry; Visit Provider Psychiatry & Neurology Psychiatry
DX: F31.63 Bipolar disorder, current episode mixed, severe, without psychotic features (principal); F43.10 Post-traumatic stress disorder, unspecified; F41.0 Panic disorder [episodic paroxysmal anxiety]; F50.81 Binge eating disorder
CPT/HCPCS: 99213; H2012; H2020; S9480; 90834